=== PATIENT | female | born 1990 | race Caucasian/White ===

== ENCOUNTER 2019-01-11 12:06 | Emergency (ER) | payer SELFPAY ==
[~2019-01-11] VITALS: Ht 157.5 cm; Wt 68.0 kg
[2019-01-11 12:11] VITALS: BP_SYST 156
--- NOTE | 2019-01-11 12:11 | NUR ---
Placed in room 7 . Placed on environmental monitoring specialist, blood pressure machine and pulse oximeter. To gown for exam. Side rails up. Report given to Amie SALDIVAR.
[2019-01-11] MEDS ORDERED: methylPREDNISolone SOD SUCC/PF 62.5 MG/ML VIAL IVP ONE (12:15)
[2019-01-11] MEDS ORDERED: ALBUTEROL SULFATE 0.083% 2.5 MG/3 ML VIAL.NEB IH ONE ×2 (12:15→13:15)
[2019-01-11] MEDS ORDERED: MAGNESIUM SULFATE 1 GM in NS 50 ML IV ONE (12:15)
[2019-01-11] MEDS ORDERED: IPRATROPIUM BROM 0.5 MG/2.5 ML VIAL.NEB (ATROVENT) IH ONE (12:15)
--- NOTE | 2019-01-11 12:18 | NUR ---
PATIENT IN BED SITTING UP WITH HOB ELEVATED. PATIENT STATED "MY ALLERGIES AND ASTHMA HAS BEEN BOTHERING ME". PATIENT STATED THAT SHE WAS HAVING SOB AND CHEST PRESSURE. PATIENT STATED THAT SHE HAS NO PAST MEDICAL HISTORY EXCEPT ASTHMA AND ALLERGIES. VSS. WILL CONTINUE TO MONITOR.
[2019-01-11] MEDS ORDERED: MAGNESIUM SULFATE 1 GM/2 ML VIAL ONE (12:48)
[2019-01-11] MEDS ORDERED: LEVALBUTEROL HCL 0.63 MG/3 ML VIAL.NEB IH ONE (13:15)
--- NOTE | 2019-01-11 13:35 | NUR ---
PATIENT FEELING BETTER.
--- NOTE | 2019-01-11 14:26 | NUR ---
Patient given written and verbal discharge instructions and verbalizes understanding. ER MD Hopson discussed with patient the results and treatment provided. Patient in stable condition. ID arm band removed. IV catheter removed intact and dressing applied, no active bleeding. Rx of Prednisone, Albuterol, Zithromax given. Patient educated on pain management and to follow up with PMD. Pain Scale 0. Opportunity for questions provided and answered. Medication side effect fact sheet provided.
[2019-01-11 14:27] VITALS: BP_SYST 138
== END 2019-01-11 14:27 | disposition home or self-care (01) ==
LOC: SED 12:06
DX: J45.909 Unspecified asthma, uncomplicated (principal); R03.0 Elevated blood-pressure reading, without diagnosis of hypertension
CPT/HCPCS: 94640; 96365; 96375; 99284; J2930; J3475; J7613; J7614